=== PATIENT | female | born 1985 | race Caucasian/White ===

== ENCOUNTER → 2021-04-09 02:30 | Outpatient (CLI) | payer OTHER, SELFPAY ==
[2021-04-10 20:55] LABS: SARS-CoV-2 RNA PCR Negative
== END ==
PROVIDERS: PCP Family Medicine; Visit Provider Family Medicine
DX: Z20.822 Contact with and (suspected) exposure to COVID-19 (principal)
CPT/HCPCS: C9803; U0003; U0005

== ENCOUNTER 2021-07-22 17:58 | Emergency (ER) | payer OTHER, SELFPAY ==
--- NOTE | 2021-07-22 18:04 | ED.URI ---
HPI - URI/Sore Throat General Chief Complaint: Upper Respiratory Infection Stated Complaint: cough,lt ear discomfort Time Seen by Provider: 07/22/21 18:18 Source: patient and RN notes reviewed Mode of arrival: ambulatory Limitations: no limitations History of Present Illness HPI Narrative: 36-year-old female presents with concern for 4-day history of barking persistent dry cough. Reports left ear pain that has worsened today. She denies drainage from the ear. She reports rhinorrhea, denies sinus congestion. She denies fever, body aches, chills, sweats. Reports she has been using Mucinex without relief MD elicited complaint: cough and other (Ear pain) Related Data Home Medications Medication Instructions Recorded Confirmed bupropion HCl 150 mg PO DAILY 07/22/21 07/22/21 methylphenidate HCl 36 mg PO BID 07/22/21 07/22/21 Allergies Allergy/AdvReac Type Severity Reaction Status Date / Time No Known Allergies Allergy Verified 07/22/21 18:20 Review of Systems Review of Systems: CONSTITUTIONAL: Denies malaise, chills, sweats, or fever. EYES: Denies visual changes, redness, or discharge. ENT: Reports rhinorrhea, left ear pain, sore throat. Denies congestion, sinus pain CARDIOVASCULAR: Denies chest pain, palpitations, or edema. RESPIRATORY: Reports barking cough. Denies dyspnea. GASTROINTESTINAL: Denies abdominal pain, nausea, vomiting, diarrhea SKIN: Denies rash or itching. MUSCULOSKELETAL: Denies myalgia. NEUROLOGIC: Denies headache. All systems reviewed & are unremarkable except as noted in HPI and below PMFSH Social History Social History Alcohol intake: never Comments At time of signature, agree with nursing past medical, surgical, social and family history. There is no relevant family history pertinent to the presenting complaint Exam Narrative: GENERAL: Well-appearing, well-nourished, and in no acute distress. HEAD: Normocephalic EYES: PERRLA, conjunctivae clear ENT: Nares clear, turbinates erythematous, clear discharge. Mucous membranes moist. Right TM pearly galvan with dull light reflex, left TM erythematous slightly bulging; no tragal tenderness. Oropharynx not erythematous without lesions. Tonsils not enlarged and without exudate, no drooling, no hoarseness, no trismus, uvula midline. NECK: Supple. No lymphadenopathy CHEST: Clear to auscultation, breath sounds equal. No wheezing, rhonchi, rales, or stridor. No respiratory distress, speaks in full sentences. Barking cough noted HEART: Regular rate and rhythm. No murmur heard. SKIN: Warm, dry, no rash. NEURO: Alert and oriented x3. PSYCH: Normal mood and affect Course Course Emergency Course: Patient is aware of diagnosis, understands and agrees to treatment plan. Anticipatory guidance given. Patient agrees to follow-up as directed and is aware of reasons to seek care at the emergency department. Portions of this record may have been created with voice recognition software Level of Care: Express Care Visit Vital Signs Vital signs: Vital Signs Temperature 98.2 F 07/22/21 18:09 Pulse Rate 97 07/22/21 18:09 Respiratory Rate 18 07/22/21 18:09 Blood Pressure 124/77 07/22/21 18:09 Pulse Oximetry 99 07/22/21 18:09 Temperature 98.2 F 07/22/21 18:09 Pulse Rate 97 07/22/21 18:09 Respiratory Rate 18 07/22/21 18:09 Blood Pressure 124/77 07/22/21 18:09 Pulse Oximetry 99 07/22/21 18:09 Reviewed. MDM - URI/Sore Throat MDM Narrative Medical decision making narrative: Differential diagnosis considered: Story virus, strep pharyngitis, allergic rhinitis, upper respiratory tract infection, sinusitis, rhinosinusitis, nasopharyngitis. viral pharyngitis, otitis media, otitis externa, pneumonia, bronchitis, viral cough syndrome, viral syndrome, and influenza. Exam findings show no acute concerns or changes; patient is non-toxic appearing and is in no distress. Patient is appropriate for outpatient treatment and follow-up. [facility]
[2021-07-22 18:09] VITALS: BP 124/77; PULSE 97; RESP 18; TEMP 36.8; O2SAT 99
== END 2021-07-22 18:33 | disposition home or self-care (01) ==
PROVIDERS: Emergency Provider Nurse Practitioner
DX: J40 Bronchitis, not specified as acute or chronic (principal); H66.002 Acute suppurative otitis media without spontaneous rupture of ear drum, left ear; F90.9 Attention-deficit hyperactivity disorder, unspecified type
CPT/HCPCS: 99213; G0463

== ENCOUNTER 2023-01-03 19:45 | Emergency (ER) | payer OTHER, SELFPAY ==
[2023-01-03 19:52] VITALS: BP 130/76; PULSE 112; RESP 18; TEMP 36.5; O2SAT 100
--- NOTE | 2023-01-03 19:54 | ED.SKABFB ---
HPI - Skin/Abscess/Foreign Bdy General Stated complaint: burn Time Seen by Provider: 01/03/23 19:54 Source: patient and RN notes reviewed Mode of arrival: ambulatory Limitations: no limitations History of Present Illness HPI narrative: Patient presents today with burn to her left palm and palmar aspect of her fingers. Patient grabbed a hot soup pot from the stove around 17 30 this afternoon. She ran her hand under cold water and has been applying an ice pack. She currently rates her pain 10/10 and has tried no [id number] medication for symptoms prior to arrival. Related Data Home Medications Medication Instructions Recorded Confirmed bupropion HCl 150 mg 24 hr tablet, 150 mg PO DAILY 07/22/21 07/22/21 extended release methylphenidate HCl 36 mg 36 mg PO BID 07/22/21 07/22/21 tablet,extended release 24 hr Allergies Allergy/AdvReac Type Severity Reaction Status Date / Time No Known Allergies Allergy Verified 07/22/21 18:20 Review of Systems Review of Systems: CONSTITUTIONAL: Denies body aches, fever, chills, or sweats. EYES: Denies visual changes, redness, or discharge. ENT: Denies rhinorrhea, congestion, sore throat, or otalgia. CARDIOVASCULAR: Denies chest pain, palpitations, or edema. RESPIRATORY: Denies cough or dyspnea. GASTROINTESTINAL: Denies abdominal pain, nausea, vomiting, or diarrhea. GENITOURINARY: Denies dysuria or hematuria. SKIN: + burn to left hand MUSCULOSKELETAL: Denies back pain, joint pain, or myalgia. NEUROLOGIC: Denies headache, numbness, tingling, or weakness. PSYCH: Denies depression or anxiety. PMFSH Social History Social History Alcohol intake: never Comments At time of signature, I have reviewed and agree with nursing past medical, surgical, social and family history unless otherwise noted. Please see nursing chart for further information. There is no relevant family history pertinent to the presenting complaint Exam Narrative: GENERAL: Well-appearing, well-nourished, and in no acute distress. HEAD: Normocephalic, atraumatic. EYES: EOMI. No redness or drainage. Conjunctivae normal. ENT: Mucous membranes pink and moist. NECK: Normal AROM. CHEST: No respiratory distress. EXTREMITIES: Normal range of motion. No edema. SKIN: Warm, dry, no rash. Capillary refill normal. Normal skin turgor. Mild redness to the palmar aspect of all fingers and the palm of the hand. No blistering noted. Tenderness to palpation. Full range of motion of all fingers. Distal sensation intact in all 5 fingers. Capillary refill normal. NEURO: No focal deficits. Alert and oriented x3. Gait steady. PSYCH: Normal affect. No signs of depression or anxiety. Course Course Level of Care: Express Care Visit Vital Signs Vital signs: Vital Signs Temperature 97.7 F 01/03/23 19:52 Pulse Rate 112 H 01/03/23 19:52 Respiratory Rate 18 01/03/23 19:52 Blood Pressure 130/76 01/03/23 19:52 Pulse Oximetry 100 01/03/23 19:52 Oxygen Delivery Room Air 01/03/23 19:52 Temperature 97.7 F 01/03/23 19:52 Pulse Rate 112 H 01/03/23 19:52 Respiratory Rate 18 01/03/23 19:52 Blood Pressure 130/76 01/03/23 19:52 Pulse Oximetry 100 01/03/23 19:52 Oxygen Delivery Room Air 01/03/23 19:52 Reviewed. Pt has been instructed to follow up with her PCP regarding her elevated blood pressure today. MDM - Skin/Abscess/Foreign Bdy MDM Narrative Medical decision making narrative: Exam shows 1st degree burn to all painful surfaces. Dressed with Silvadene and nonadherent dressing. Discussed NSAID use. Anticipatory guidance given. Differential Diagnosis Differential diagnosis: Likely other (1st degree burn, second-degree burn) Critical Care Time Critical Care Time Critical Care Time: No Discharge Plan Discharge Clinical Impression: First degree burn Patient Disposition: Home, Self-Care C
[2023-01-03] MEDS: SILVER SULFADIAZINE 1% CR 50 GM JAR (*BKC) 1 APPLIC TOPICAL (20:03)
== END 2023-01-03 20:15 | disposition home or self-care (01) ==
PROVIDERS: Emergency Provider Nurse Practitioner; PCP Family Medicine
DX: T23.152A Burn of first degree of left palm, initial encounter (principal); T31.0 Burns involving less than 10% of body surface; X12.XXXA Contact with other hot fluids, initial encounter
CPT/HCPCS: 99213; A9270; G0463

== ENCOUNTER 2023-05-18 19:04 | Emergency (ER) | payer OTHER, SELFPAY ==
--- NOTE | 2023-05-18 19:10 | ED.URI ---
HPI - URI/Sore Throat General Chief Complaint: Upper Respiratory Infection Stated Complaint: knot in throat Time Seen by Provider: 05/18/23 19:10 Source: patient Mode of arrival: ambulatory Limitations: no limitations History of Present Illness HPI Narrative: Patient is a 38-year-old female that presents with 1 day of sore throat, nausea and ear pressure. Patient states she had COVID 2 weeks ago. Denies any fevers, chills, congestion, cough, vomiting or diarrhea. Has not taken anything for symptoms. Related Data Home Medications Medication Instructions Recorded Confirmed bupropion HCl 150 mg 24 hr tablet, 150 mg PO DAILY 07/22/21 05/18/23 extended release methylphenidate HCl 36 mg 36 mg PO BID 07/22/21 05/18/23 tablet,extended release 24 hr aspirin 81 mg tablet 81 mg PO DAILY 05/18/23 05/18/23 atomoxetine 80 mg capsule 80 mg PO DAILY 05/18/23 05/18/23 Allergies Allergy/AdvReac Type Severity Reaction Status Date / Time No Known Allergies Allergy Verified 05/18/23 19:10 Review of Systems Review of Systems: All systems reviewed & are unremarkable except as noted in HPI and below Constitutional: Constitutional: Denies body ache(s), Denies chills, Denies fatigue, Denies fever(s), Denies headache(s), Denies malaise and Denies weakness Eyes: Eyes: Denies blurry vision, Denies itchy eyes and Denies loss of vision ENT: Reports otalgia, Denies headache(s), Denies nasal congestion, Denies sinus pain and Reports sore throat Cardiovascular: Cardiovascular: Denies chest pain, Denies irregular heart rhythm and Denies dyspnea Respiratory: Respiratory: Denies cough and Denies dyspnea Gastrointestinal: Gastrointestinal: Denies abdominal pain, Denies diarrhea, Reports nausea and Denies vomiting Musculoskeletal: Musculoskeletal: Denies back pain, Denies myalgias and Denies arthralgias Integumentary/Breasts: Skin/Breast: Denies pruritus and Denies rash Neurologic: Denies headache(s), Denies loss of vision and Denies weakness Psychiatric: Psychiatric: Reports no additional psychiatric complaints Endocrine: Endocrine: Denies fatigue Allergic/Immunologic: Allergic/Immunologic: Denies itchy eyes PMFSH Social History Social History Alcohol intake: never Comments At time of signature, agree with nursing past medical, surgical, social and family history. There is no relevant family history pertinent to the presenting complaint. Exam Const: General: cooperative, healthy appearing, comfortable, no acute distress and well nourished Nutritional Appearance: well nourished Orientation/consciousness: patient oriented x3 Limitations: no limitations HENMT: Head: normal to inspection, normocephalic and atraumatic Ears: hearing grossly normal bilaterally, external ears normal, TM's normal bilaterally, EAC's normal and no periauricular adenopathy Face/Nose/Sinus: Normal external nose present, Abnormal mucous membranes and turbinates present erythematous bilateral and diffuse, normal facial exam, sinuses nontender and face symmetric Face and sinus: normal facial exam, sinuses nontender and face symmetric Mouth: Yes Normal oral and palatal mucosa present, Yes lip normal, Yes tongue normal, Yes Normal salivary glands and ducts present, Yes oropharynx normal and Yes moist mucous membranes Teeth and gingiva: dentition normal Throat: uvula midline, abnormal tonsil bilateral erythema, exudates (Tonsil stone left), hypertrophy 2+ and pitting and posterior oropharynx abnormal erythema Eyes: General: appearance normal, both eyes and all related structures Alignment and Position: alignment normal and position normal Periorbital: periorbital findings normal Eyelids: eyelids normal Pupils: Equal, round and reactive pupils present Neck: Neck: normal visual inspection, full ROM, no lymphadenopathy and supple Chest: Chest palpation & inspection: normal inspection of the chest and normal
[2023-05-18 19:24] VITALS: BP 122/71; PULSE 100; RESP 16; TEMP 36.6; O2SAT 100
== END 2023-05-18 19:32 | disposition home or self-care (01) ==
PROVIDERS: Emergency Provider Nurse Practitioner Family; PCP Family Medicine
DX: J02.0 Streptococcal pharyngitis (principal); J35.8 Other chronic diseases of tonsils and adenoids
CPT/HCPCS: 87880; 99213; G0463

== ENCOUNTER 2023-10-06 17:05 | Emergency (ER) | payer OTHER, SELFPAY ==
[2023-10-06 17:13] VITALS: BP 113/71; PULSE 68; RESP 18; TEMP 36.7; O2SAT 100
--- NOTE | 2023-10-06 18:05 | ED.URI ---
HPI - URI/Sore Throat General Chief Complaint: Upper Respiratory Infection Stated Complaint: Sore Throat Time Seen by Provider: 10/06/23 17:30 Source: patient, RN notes reviewed and old records reviewed Mode of arrival: ambulatory Limitations: no limitations History of Present Illness HPI Narrative: 38 year old female who presents to [facility] care with complaints of experiencing sore throat since Wednesday of past weekend and then having urinary urgency since Wednesday. Patient reports that she took AZO for symptoms initially has not had any AZO since. Patient reports that she had chills today with no know fevers. Patient reports that her life has been a whirlwind with loss of her grandmother who was more like a mother to her and services this week. Patient reports she has used some nasal spray for sinus drainage and congestion, MD elicited complaint: sore throat and other (urinary urgency) Onset (ago): day(s) (4 day throat irritation and 2 days urinary urgency) Pain scale (0-10): 4 Able to tolerate fluids by mouth: Yes Treatments prior to arrival: other (nasal spray, AZO) Related Data Home Medications Medication Instructions Recorded Confirmed bupropion HCl 150 mg 24 hr tablet, 150 mg PO DAILY 07/22/21 10/06/23 extended release methylphenidate HCl 36 mg 36 mg PO BID 07/22/21 10/06/23 tablet,extended release 24 hr Allergies Allergy/AdvReac Type Severity Reaction Status Date / Time No Known Allergies Allergy Verified 10/06/23 17:34 Review of Systems Review of Systems: CONSTITUTIONAL: Denies fever, states some chills today, or sweats. EYES: Denies visual changes, redness, or discharge. ENT: reports rhinorrhea, congestion, sore throat, no otalgia. CARDIOVASCULAR: Denies chest pain, palpitations, or edema. RESPIRATORY: Denies cough or dyspnea. GASTROINTESTINAL: Denies abdominal pain, nausea, vomiting, or diarrhea. GENITOURINARY: denies dysuria or hematuria, urgency of urination reported SKIN: Denies rash or itching. MUSCULOSKELETAL: Denies back pain, joint pain, or myalgia. NEUROLOGIC: Denies headache, numbness, or weakness. PSYCHIATRIC: Positive for anxiety or depression. All systems reviewed & are unremarkable except as noted in HPI and below PMFSH Past Medical History Medical History (Updated 10/06/23 @ 18:33 by Etta Mujica NP) ADHD (attention deficit hyperactivity disorder) Anxiety and depression History of sinus problem Surgical History Surgical History (Updated 10/06/23 @ 18:30 by Etta Mujica NP) History of placement of ear tubes Social History Social History (Updated 10/06/23 @ 18:32 by Etta Mujica NP) Smoking status: Never smoker Alcohol intake: never Substance use type: does not use Living arrangements: with family Gender identity (if verbalized by the patient): Female Comments At time of signature, agree with nursing past medical, surgical, social and family history. There is no relevant family history pertinent to the presenting complaint Exam Narrative: GENERAL: Well-appearing, well-nourished, and in no acute distress. HEAD: Normocephalic, atraumatic. EYES: PERRLA and EOMI. ENT: Nares clear, no rhinorrhea or epistaxis. Mucous membranes moist.TM's normal, throat with some redness no tonsil swelling or exudates, post nasal drainage noted NECK: Supple.no lymphadenopathy CHEST: Clear to auscultation. No respiratory distress. SAO2 100% on room air HEART: Regular rate and rhythm. No murmur heard. Normal peripheral pulses. ABDOMEN: Soft, nontender, nondistended, normal active bowel sounds.no suprapubic discomfort or any CVA tenderness EXTREMITIES: Normal range of motion. No edema. SKIN: Warm, dry, no rash. NEURO: No focal deficits. Alert and oriented x3. Course Course Emergency Course: Patient is aware of diagnosis, understands and agrees to treatment plan.? Anticipatory guidance given.? Patient agrees to follow-up as directed and is aware of reason
[2023-10-06 18:15] LABS: EDSTREPNEGPOS1 Presumptive Negative
[2023-10-06 18:15] LABS: EDUAAPPEAR Clear; EDUABILI Negative; EDUABLOOD Negative; EDUACOLOR1 Yellow; EDUAGLUCOSE Negative; EDUAKETONE Negative; EDUALEUKO Negative; EDUANITRATE Negative; EDUAPH 5.5; EDUAPROTEIN Negative; EDUAUROBILI 0.2
== END 2023-10-06 18:05 | disposition home or self-care (01) ==
PROVIDERS: Emergency Provider Registered Nurse; PCP Family Medicine
DX: R39.15 Urgency of urination (principal); J02.9 Acute pharyngitis, unspecified; Z20.822 Contact with and (suspected) exposure to COVID-19; F41.9 Anxiety disorder, unspecified; F32.A Depression, unspecified; F90.9 Attention-deficit hyperactivity disorder, unspecified type
CPT/HCPCS: 81003; 87081; 87426; 87880; 99213; G0463

== ENCOUNTER 2024-02-14 17:09 | Emergency (ER) | payer OTHER, SELFPAY ==
[2024-02-14 17:23] VITALS: BP 127/75; PULSE 87; RESP 18; TEMP 36.8; O2SAT 98
--- NOTE | 2024-02-14 17:37 | ED.URI ---
HPI - URI/Sore Throat General Chief Complaint: Upper Respiratory Infection Stated Complaint: cough / congestion Time Seen by Provider: 02/14/24 17:58 Source: patient, RN notes reviewed and old records reviewed Mode of arrival: ambulatory Limitations: no limitations History of Present Illness HPI Narrative: patient presents accompanied by her child. Patient states that she has had a couple of weeks of sinus pain and congestion, now postnasal drainage that is causing her to cough. She reports the cough is sometimes productive. States that she is having wheezing. Does have history of carotid dissection that was believed to be caused by excessive coughing last year. Patient very nervous about her cough. She denies any fever, chills, sweats. She is taking Mucinex for her symptoms with moderate relief. Related Data Home Medications Medication Instructions Recorded Confirmed bupropion HCl 150 mg 24 hr tablet, 150 mg PO DAILY 07/22/21 02/14/24 extended release methylphenidate HCl 36 mg 36 mg PO BID 07/22/21 02/14/24 tablet,extended release 24 hr alprazolam 0.25 mg tablet 0.25 mg PO PRN PRN Anxiety 02/14/24 02/14/24 levonorgestrel 21 mcg/24 hr (up to 1 device intrauterine ONCE 02/14/24 02/14/24 8 years) 52 mg intrauterine device (Mirena) Allergies Allergy/AdvReac Type Severity Reaction Status Date / Time No Known Allergies Allergy Verified 02/14/24 17:22 Review of Systems Review of Systems: All systems reviewed & are unremarkable except as noted in HPI and below Constitutional: Constitutional: Reports as per HPI, Reports no additional constitutional complaints, Reports headache(s) and Reports lethargy ENT: Reports system reviewed and no additional complaints, except as documented, Reports headache(s), Reports nasal congestion, Reports nasal discharge, Reports sinus pain and Reports sinus pressure Cardiovascular: Cardiovascular: Reports no additional cardiovascular complaints Respiratory: Respiratory: Reports as per HPI, Reports no additional respiratory complaints, Reports chest congestion and Reports cough Gastrointestinal: Gastrointestinal: Reports no additional gastrointestinal complaints PMFSH Past Medical History Medical History ADHD (attention deficit hyperactivity disorder) Anxiety and depression History of sinus problem Surgical History Surgical History History of placement of ear tubes Social History Social History Smoking status: Never smoker Alcohol intake: never Substance use type: does not use Living arrangements: with family Gender identity (if verbalized by the patient): Female Comments At the time of my signature, I reviewed and agree with the nursing past medical, surgical, social, and family history. There is no relevant family history pertinent to the patient complaint. Exam Const: General: cooperative, no acute distress, alert and awake Orientation/consciousness: oriented to person, oriented to place and oriented to time HENMT: Head: normal to inspection Ears: TM abnormal scarred bilateral Face and sinus: sinus tenderness Mouth: Yes moist mucous membranes Throat: posterior oropharynx abnormal erythema and postnasal drainage Resp: Effort & Inspection: normal respiratory effort and able to speak in complete sentences Auscultation: clear to auscultation bilaterally, no crackles, no rales, no rhonchi and no wheezes Cardio: Palpation: normal PMI Rate: regular rate Rhythm: regular rhythm Heart sounds: S1 normal heart sound present and S2 normal heart sound present Neuro: General: oriented to person, oriented to place and oriented to time Cranial nerves: Yes CN's II-XII intact bilaterally Psych: Appearance: grossly normal Thought process: Normal thought process present Insight: Good insight present (Psych) Judgement: Good judgement present (Psych) Course Course Level of Care: Express Care Visit Vital Signs Vital signs: Vital Signs Temperature 98.3 F 02/14/24 17:23 Pulse Rate 87 02/14/24 17:23 Respiratory Rate 18 02/14/24 17:23 Blood Pressure 127/75 02/14/24 17:23 Pulse Oximetry 98 02/14/24 17:23 Oxygen Delivery Room Air 02/14/24 17:23 Temperature 98.3 F 02/14/24 17:23 Pulse Rate 87 02/14/24 17:23 Respiratory Rate 18 02/14/24 17:23 Blood Pressure 127/75 02/14/24 17:23 Pulse Oximetry 98 02/14/24 17:23 Oxygen Delivery Room Air 02/14/24 17:23 Reviewed MDM - URI/Sore Throat MDM Narrative Medical decision making narrative: History and exam consistent with sinusitis. She is also having some coughing. Declines chest x-ray. Will cover sinusitis with doxycycline to also cover chest just in case there is a Coke existing pneumonia. Start cough medication, steroids, albuterol. Follow with primary care provider. Patient nontoxic and stable for discharge home. Discharge instructions reviewed with patient, as well as provided in writing per nursing staff. The instructions also include specific and strict return/GO TO THE ER as well as f/u information. All questions have been answered, and the patient deny any further questions with discharge and discharge plan. Some parts of this dictation were generated by voice recognition software and may contain typographical and/or grammatical inaccuracies. Differential Diagnosis Differential diagnosis: Likely upper respiratory infection, otitis media, sinusitis and bronchitis Medical Records Attestation: I reviewed the patient's medical records. Discharge Plan Discharge Clinical Impression: Sinusitis Qualifiers: Sinusitis location: frontal Chronicity: acute Recurrence: not specified as recurrent Qualified Code(s): J01.10 - Acute frontal sinusitis, unspecified Patient Disposition: Home, Self-Care Condition: Stable Instructions: Antibiotic Form, Sinusitis (ED) Additional Instructions: Take medications as prescribed. Follow with primary care provider. Emergency department for new worse symptoms Patient Language: Portuguese Prescriptions: New doxycycline hyclate 100 mg capsule 100 mg PO BID 10 Days Qty: 20 0RF prednisone 50 mg tablet 50 mg PO DAILY Qty: 5 0RF albuterol sulfate [Ventolin HFA] 90 mcg/actuation HFA aerosol inhaler 2 puff inhalation QID PRN (Reason: shortness of breath or wheezing) Qty: 8.5 0RF benzonatate 200 mg capsule 200 mg PO TID PRN (Reason: cough) Qty: 30 0RF No Action methylphenidate HCl 36 mg tablet extended release 24hr 36 mg PO BID bupropion HCl 150 mg tablet extended release 24 hr 150 mg PO DAILY alprazolam 0.25 mg tablet 0.25 mg PO PRN PRN (Reason: Anxiety) Mirena 21 mcg/24hr (up to 8 yrs) 52 mg Intrauterine Device 1 device INTRAUTERINE ONCE Rx Instructions: as a single dose Follow-up/Referrals: Bijan,Cyndie Sethi MD [Primary Care Provider] - 1 Week Stand Alone Forms: Work/School Release IP Time of Disposition: 18:16
== END 2024-02-14 18:18 | disposition home or self-care (01) ==
PROVIDERS: Emergency Provider Nurse Practitioner Family; PCP Family Medicine
DX: J01.10 Acute frontal sinusitis, unspecified (principal); F90.9 Attention-deficit hyperactivity disorder, unspecified type; F41.9 Anxiety disorder, unspecified; F32.A Depression, unspecified
CPT/HCPCS: 99213; G0463